=== PATIENT | female | born 1960 | race Caucasian/White ===

== ENCOUNTER 2019-08-27 11:15 | Outpatient (RCR) | payer MEDICAID | END 2019-09-07 | disposition still patient (30) | LOC: WSPT | DX: I89.0 Lymphedema, not elsewhere classified (principal); I87.8 Other specified disorders of veins ==

== ENCOUNTER → 2019-10-23 | Outpatient (CLI) | payer MEDICAID | LOC: ZCOL.LAB 15:18 | DX: I83.009 Varicose veins of unspecified lower extremity with ulcer of unspecified site (principal) ==